=== PATIENT | female | born 1940 | race Caucasian/White ===

== ENCOUNTER 2020-01-07 18:37 | Inpatient (IN) | payer OTHER ==
[~2020-01-07] VITALS: Ht 165.1 cm; Wt 50.3 kg
--- NOTE | ~2020-01-07 | HC ---
[facility] [place] [address] CONSULTATION Name: DOYLEPOOJA ANEL Room #: 464-P ADM IN M.R.#: [id number] Admission: 01/07/20 Attend Phys: Caden Bland Discharge: Date of : 38 Report #: [id number] THIS REPORT FOR: cc: SUZANNE BONDS MD Physician not on staff Carlos Luna MD ~ DATE OF SERVICE: 01/08/2020 HISTORY OF PRESENT ILLNESS: This is an 79-year-old female patient who was evaluated by me for the possibility of seizure. The patient does not provide any reliable history. The provides history. He gives a history that this patient has a diagnosis of Parkinson's disease. Apparently, she had no tremor and it was mostly rigidity and gait abnormality. For last several years, she has followed up with Dr. Lainez at [facility]. They are managing her with the medication and Sinemet does help. She was having some spasms from the last few weeks. It is not clear what the cause of those spasms were. She has used walker for some time now. She had an episode where she became hypervigilant, had some movements, some clenching of teeth was noticed. She was confused. That is difficult to evaluate because this patient has a prior history of hallucination because of the medications. Her memory is not that much affected with Parkinson and she does not appear to have any Parkinson dementia complex. REVIEW OF SYSTEMS: A 14-point review of system was carried out. The patient is pretty drowsy. She has a history of hypertension, hysterectomy and high cholesterol. That is all the relevant 14-point review of system. PAST MEDICAL HISTORY: Positive for Parkinson disease. FAMILY HISTORY: Negative for early age stroke. SOCIAL HISTORY: She lives with her and is the one who provided most of the history. PHYSICAL EXAMINATION: The patient is drowsy. She wakes up some. When she wakes up some time, she will follow commands, most of the time she will not. She is pretty sleepy. Higher function is difficult to tell, but does look like she know what month it is. Speech is pretty soft. Cranial nerve examination is unremarkable. Neuromuscular examination indicates she moves all 4 extremities. She says she can feel on both sides. She does relax for reflexes and plantars. [facility] [address] [place] [address] CONSULTATION Name: DOYLEPOOJA TAM Room #: 464-P [facility] IN M.R.#: [id number] Admission: 01/07/20 Attend Phys: Caden Bland Discharge: Date of : 38 Report #: [id number] There is no meningeal sign. She does not do cerebellar sign. Cardiac examination indicates question of murmur. Respiratory examination indicates no respiratory difficulty. She is moderately built individual. She has no dysmorphic features of eyes, ears and face. Blood pressure is 159/86, respirations 16, pulse is 78 and temperature is 97.7. LABORATORY DATA: Indicate a white count of 8. Glucose is normal. CT is okay. IMPRESSION: This patient has a question of seizure. This is not definite that it was a seizure, but I cannot exclude that either she is having some problem from the last couple of weeks with some nonspecific symptom. She needs further workup before we can decide about the treatment. She also appeared to have a murmur in the heart and we will get an echocardiogram. Further treatment will be decided after her MRI, EEG, echocardiogram and rest of the blood workup is available, which I ordered. Dr. Cardenas will follow up with this patient with you tomorrow and I spent more than 50 minutes of time taking care of this patient and majority was spent counseling and coordinating. By: [id number] Carlos Luna MD /nt
--- NOTE | ~2020-01-07 | EEG ---
[facility] [place] [address] [place] [address] ELECTROENCEPHALOGRAM Name: POOJA KWON Room #: 464-P ADM IN M.R.#: [id number] Admission: 01/07/20 Attend Phys: Caden Lacy Discharge: Date of : 38 Report #: [id number] THIS REPORT FOR: //name// CC: SUZANNE Bland Physician staff DATE OF SERVICE: 01/08/2020 FINDINGS: This patient is being evaluated for the possibility of seizure. EEG was done by placing the electrode by standard 10-20 system of electrode placement. Both referential and sequential montages were used for recording. Background activity in this patient's EEG is about 8 Hz and 15 microvolt. The patient went to sleep that is associated with bilateral slowing and vertex sharp waves. Photic stimulation is unremarkable. Throughout the record, no active epileptiform activity was noticed. IMPRESSION: This patient's EEG is slow voltage and intermixed with theta range slowing on both sides. That is a nonspecific abnormality, which can occur with dementia, encephalopathy, effect of psychotropic medication, etc. Clinical correlation is recommended. Thank you very much for this referral. By: [id number] Carlos Luna MD /nt
[~2020-01-07 18:37] MED LIST: CARBIDOPA-LEVO1 EAC2; HYDROCHLOROTHIA25 M1; PROVENTIL INH; TOPROL XL25 MG; ZOCOR 20 MG TAB20 M1
[2020-01-07 18:38] VITALS: BP 153/91
[2020-01-07 19:47] LABS: ABSOLUTE NEUTROPHILS 7.2 thou/uL (1.4-8.2); BASOPHILS 0.2 % (0.0-2.0); EOSINOPHILS 0.1 % (0.0-3.0); HEMATOCRIT 33.4 % (37.0-47.0); HEMOGLOBIN 11.6 gm/dL (12.0-15.0); LYMPHOCYTES 5.1 % (24.0-44.0); MCH 30.1 pg (26.0-34.0); MCHC 34.7 g/dL (28.0-37.0); MCV 86.7 fL (80.0-100.0); MONOCYTES 4.9 % (1.0-8.0); PLATELET COUNT 339 thou/uL (150-400); POLYS 89.7 % (36.0-66.0); RBC 3.85 mil/uL (4.20-5.00); RDW 14.1 % (10.5-14.5)
[2020-01-07 19:58] LABS: CALCIUM 9.5 mg/dL (8.5-10.1); POTASSIUM 3.8 mmol/L (3.5-5.1)
[2020-01-07 20:04] LABS: ALBUMIN 3.4 g/dL (3.4-5.0); MAGNESIUM 1.7 mg/dL (1.8-2.4); TOTAL BILIRUBIN 0.7 mg/dL (0.2-1.0); TOTAL PROTEIN 6.7 g/dL (6.4-8.2)
[2020-01-07 20:47] VITALS: BP 178/73
[2020-01-07 21:23] VITALS: BP 146/75
[2020-01-07 21:37] LABS: URINE BILIRUBIN NEGATIVE (Negative); URINE BLOOD NEGATIVE (Negative); URINE CLARITY CLEAR; URINE COLOR YELLOW; URINE GLUCOSE-RANDOM* NEGATIVE (Negative); URINE KETONES TRACE (Negative); URINE LEUKOCYTES-REFLEX NEGATIVE (Negative); URINE NITRITE-REFLEX NEGATIVE (Negative); URINE PROTEIN (DIPSTICK) 1+ (Negative); URINE SPECIFIC GRAVITY >= 1.030 (1.005-1.035)
[2020-01-07 21:42] LABS: HDL CHOLESTEROL 71 mg/dL (>40); TRIGLYCERIDE 79 mg/dL (<150); VLDL 16 mg/dL (<40)
[2020-01-07 21:47] LABS: CHOLESTEROL 223 mg/dL (<200); LDL CHOLESTEROL 137 mg/dL (<100); SERUM ASSESSMENT Clear; TC:HDL 3.1 Ratio (Not establshd)
[2020-01-07 21:50] LABS: SQUAMOUS 0-3 Few /LPF (0-3); TRANSITIONAL EPITHEL CELL 0-3 Few /LPF (None Seen)
[2020-01-07 21:51] LABS: BACTERIA-REFLEX 1-9 Few /HPF (None Seen); CASTS None Seen /LPF (None Seen); CRYSTALS None Seen /LPF (None Seen); URINE RBC None Seen /HPF (0-2); URINE WBC-REFLEX None Seen /HPF (0-5)
[2020-01-07 22:09] VITALS: BP 147/82
[2020-01-07] MEDS ORDERED: RYTARY ER 61.21 EACH PO (23:53)
--- NOTE | 2020-01-08 00:37 | NUR ---
ASSUMED CARE OF PT FROM ER AT 2140HRS. PT AOX1 AND NEEDS MAY NEED TO BE ANTICIPATED. FALL PRECAUTION IN PLACE. SEIZURE PRECAUTION IN PLACE. NO WOUNDS NOTED. SCD IN PLACE. PT DENIES PAIN, NAUSEA OR SOA. PT WAS UNABLE TO SIGN CONSENTS OR ANSWER ALL ADMISSION RELATED QUESTIONS. PT IS INCT. INFOMATION FROM PT IS UNRELIABLE. ORDERS RECEIVED AND STARTED. PT WAS ABLE TO GET COMFORTABLE AND SLEEP. WILL CONTINUE TO MONITOR.
[2020-01-08 02:33] VITALS: BP 150/80
[2020-01-08 06:11] LABS: CALCIUM 9.2 mg/dL (8.5-10.1); CREATININE 0.8 mg/dL (0.6-1.0); POTASSIUM 4.1 mmol/L (3.5-5.1)
[2020-01-08 06:37] VITALS: BP 170/80
--- NOTE | 2020-01-08 07:07 | EKG ---
[facility] [place] [address] ELECTROCARDIOGRAM REPORT Name: DOYLEPOOJA ANEL Room #: 464-P ADM IN M.R.#: [id number] Admission: 01/07/20 Attend Phys: Caden Bland Discharge: Date of : 38 Report #: [id number] THIS REPORT FOR: cc: SUZANNE BONDS MD Physician not on staff Aj Gautam MD [facility] THIS REPORT FOR: //name// [facility] ED Test Date: 2020-01-07 Test Time: 18:48:18 Pat Name: POOJA KWON Department: Room: 464 Gender: F Rehabilitation Specialist: GEREMIAS : 1940 Requested By: Cal Estrella Order Number: [id number] MD: Aj Gautam Measurements Intervals [place] Rate: 63 P: 65 VT: 181 QRS: -31 QRSD: 149 T: 120 QT: 456 QTc: 467 Interpretive Statements Sinus rhythm Probable left atrial enlargement Left bundle branch block Compared to ECG 07/11/2010 16:22:53 Left-axis deviation no longer present Electronically Signed On 01-08-2020 7:06:57 [employer]CH[employer] by Aj Gautam [email or web address] <ELECTRONICALLY SIGNED> By: Aj Gautam MD, FAC 01/08/20 0706 [id number] Aj Gautam MD, [facility] /EPI
[2020-01-08 07:59] VITALS: BP 159/86
[2020-01-08] MEDS ORDERED: CARBIDOPA-LEVO1 EAC9 PO (11:01)
--- NOTE | 2020-01-08 14:23 | 2DMMODE ---
[facility] [place] [address] 2 D/M-MODE ECHOCARDIOGRAM Name: POOJA KWON Room #: 464-P ADM IN M.R.#: [id number] Admission: 01/07/20 Attend Phys: Caden Bland Discharge: Date of : 38 Report #: [id number] THIS REPORT FOR: cc: SUZANNE BONDS MD Physician not on staff Abraham Caceres MD ~ APPROVED REPORT Study performed: 01/08/2020 13:35:28 EXAM: Comprehensive 2D, Doppler, and color-flow Echocardiogram Patient Location: Bedside Room #: 464 Status: routine BSA: 1.59 HR: 67 bpm BP: 159/86 mmHg Rhythm: LBBB Indications Syncope Hx: HTN, HLP. 2D Dimensions RVDd: 28.08 mm IVSd: 12.28 (7-11mm) LVOT Diam: 19.88 (18-24mm) LVDd: 38.41 mm PWd: 11.00 (7-11mm) Ascending Ao: 36.03 (22-36mm) LVDs: 29.35 (25-40mm) Aortic Root: 35.61 mm Volumes Left Atrial Volume (Systole) Single Plane 4CH: 29.23 mL Single Plane 2CH: 36.08 mL LA ESV Index: 22.00 mL/m2 Aortic Valve AoV Peak Zack.: 1.32 m/s AO Peak Gr.: 6.94 mmHg LVOT Max P.52 mmHg LVOT Max V: 0.94 m/s NEDA Vmax: 2.21 cm2 Mitral Valve E/A Ratio: 0.6 [facility] [address] [place] [address] 2 D/M-MODE ECHOCARDIOGRAM Name: POOJA KWON Room #: 464-P [facility] IN .R.#: [id number] Admission: 01/07/20 Attend Phys: Caden Frey Discharge: Date of : 38 Report #: [id number] MV Decel. Time: 326.47 ms MV E Max Zack.: 0.50 m/s MV A Zack.: 0.82 m/s MV PHT: 94.68 ms IVRT: 176.47 ms Pulmonary Valve PV Peak Zack.: 1.30 m/s PV Peak Gr.: 6.74 mmHg Pulmonary Vein P Vein S: 0.61 m/s P Vein A: 0.28 m/s P Vein D: 0.41 m/s P Vein A Dur.: 107.3 msec P Vein S/D Ratio: 1.49 Tricuspid Valve TR Peak Zack.: 2.62 m/s RAP Estimate: 5.00 mmHg TR Peak Gr.: 28.00 mmHg PA Pressure: 33.00 mmHg Left Ventricle The left ventricle is normal size. There is normal LV segmental wall motion. Paradoxical septal motion. Mild concentric left ventricular hypertrophy. Left ventricular systolic function is normal. LVEF is 55-60%. Mild diastolic dysfunction is present (impaired relaxation pattern). Right Ventricle The right ventricle is normal size. The right ventricular systolic function is normal. Atria The left atrium size is normal. The right atrium size is normal. Aortic Valve The aortic valve is normal in structure. Leaflets are mildly thickened and calcified. Trace aortic regurgitation. There is no aortic valvular stenosis. Mitral Valve The mitral valve is normal in structure. Mild mitral annular calcification. Trace mitral regurgitation. No evidence of mitral valve stenosis. Tricuspid Valve The tricuspid valve is normal in structure. Trace tricuspid [facility] [address] [place] [address] 2 D/M-MODE ECHOCARDIOGRAM Name: DOYLEPOOJA Room #: 464-P ADM IN M.R.#: [id number] Admission: 01/07/20 Attend Phys: Caden Frey Discharge: Date of : 38 Report #: [id number] regurgitation. Estimated PAP 33mmHg. Pulmonic Valve The pulmonary valve is normal in structure. Mild to moderate pulmonic regurgitation. Great Vessels The aortic root is normal in size. The ascending aorta is normal in size. IVC is normal in size and collapses >50% with inspiration. Pericardium There is no pericardial effusion. <Conclusion> The left ventricle is normal size. Mild concentric left ventricular hypertrophy. Left ventricular systolic function is normal. Mild diastolic dysfunction is present (impaired relaxation pattern). The right ventricle is normal size. The left atrium size is normal. The aortic valve is normal in structure. Leaflets are mildly thickened and calcified. Trace mitral regurgitation. Trace tricuspid regurgitation. Estimated PAP 33mmHg. <ELECTRONICALLY SIGNED> By: Abraham Caceres MD 01/08/20 1423 1423 1423 Abraham Caceres MD /INF
--- NOTE | 2020-01-08 14:55 | NUR ---
PT ADMITTED RELATED TO NEW ONSET SEIZURE. CM REVIEWED CHART AND SPOKE WITH CARE TEAM. CM CALLED AND SPOKE WITH PT'S SPOUSE AT BEDSIDE THIS DAY. HE INDICATED THAT THEY RESIDE IN ME AT [facility]. HE INDICATED THAT PT HAD USED A [employer] AND A WC. PCP IS DR. SUZANNE BONDS. SPOUSE INDICATED THAT PT WAS SUPPOSED TO START HOME HEALTH THEAPIES TODAY THROUGH [facility]. HE INDICATED THAT THEY HOPE THAT PT WILL BE ABLE TO RETURN HOME WITH SERVICES ONCE MEDICALLY STABLE BUT THAT PT HAD BEEN TO [facility] ON [facility] JANUARY OR FEBRUARY LAST YEAR FOR SHORT TERM SKILLED REHAB STAY SO THEY ARE RECEPTIVE TO SNF IS NEEDED ALSO. PT TO HAVE MRI/EEG AND NEUOR CONSULT. CM FOLLOWING REGARDING DC PLANNING.
[2020-01-08] MEDS ORDERED: RYTARY ER 61.21 EACH PO (14:58)
[2020-01-08 20:15] VITALS: BP 152/68
--- NOTE | 2020-01-08 20:29 | NUR ---
PT A*O SELF, VSS, NO APPARENT PAIN. PATIENT SLEPT MOST OF DAY. PATIENT ABLE TO FOLLOW COMMANDS AND SPOKE MORE TOWARDS END OF SHIFT. PATIENT POOR APPETITE, MEDS GIVEN WITH APPLESAUCE. AT BEDSIDE. MRI COMPLETED. NO SIGNS OF DISTRESS. WILL CONTINUE TO MONITOR.
[2020-01-09 06:07] LABS: HEMATOCRIT 33.1 % (37.0-47.0); HEMOGLOBIN 10.9 gm/dL (12.0-15.0); MCH 28.8 pg (26.0-34.0); MCV 87.4 fL (80.0-100.0); RBC 3.79 mil/uL (4.20-5.00); RDW 14.2 % (10.5-14.5); WBC 4.4 thou/uL (4.0-11.0)
[2020-01-09 06:24] LABS: CALCIUM 8.8 mg/dL (8.5-10.1); CREATININE 0.7 mg/dL (0.6-1.0); POTASSIUM 3.7 mmol/L (3.5-5.1)
[2020-01-09 07:32] VITALS: BP 166/83
--- NOTE | 2020-01-09 07:38 | NUR ---
VSS-AFEBRILE. NO SEIZURE ACTIVITY OVERNIGHT. TURNED AND OFFERED ORAL HYDRATION EVERY TWO HOURS. NO C/O PAIN. FALL PRECAUTIONS IN PLACE.
--- NOTE | 2020-01-09 10:08 | NUR ---
new orders pt and ot to eval and tx for dcp.
--- NOTE | 2020-01-09 20:44 | NUR ---
PT A&OX2, VSS, NO APPARENT PAIN. PATIENT AT BEDSIDE. PATIENT TOLERATING DIET. PATIENT UP TO RECLINER. PATIENT NEEDS TIME TO MOVE, SLOW WITH WALKER, SLIGHTLY STEADY. ROOM AIR. IV PATENT. PATIENT MORE TALKATIVE, FOLLOWS INSTRUCTIONS BETTER, FORGETFUL. NO SIGNS OF DISTRESS. WILL CONTINUE TO MONITOR.
--- NOTE | 2020-01-10 05:18 | NUR ---
Pt. rested quietly during the night when checked on during frequent rounds. She is oriented to self. Pt. offers no c/o pain or discomfort. Bed alarm is on.
[2020-01-10 07:51] VITALS: BP 117/72
[2020-01-10 11:07] VITALS: BP 117/72
--- NOTE | 2020-01-10 11:51 | NUR ---
Assumed pt care at 7am.Assessment completed.vss.am med given with breakfast and well tolerated.Complete bath given by deaf teacher.Dr Bruno here,dc order noted. Dc summary compile and reviewed with family.Saline lock dc'd.Pt will dc per wc with family at 1151 in stable condition to assisted living.
== END 2020-01-10 11:52 | DRG 100 ==
LOC: ER 18:37 → 4W 20:42 → EROBS 20:42 → 4W 21:34
PROVIDERS: Emergency Medicine; Hospitalist; Nurse Practitioner Family; ADMIT Hospitalist; ATTEND Hospitalist
DX: R56.9 Unspecified convulsions (principal); G93.41 Metabolic encephalopathy; G20 Parkinson's disease; I10 Essential (primary) hypertension; E78.00 Pure hypercholesterolemia, unspecified; E83.42 Hypomagnesemia; K59.00 Constipation, unspecified; Z90.710 Acquired absence of both cervix and uterus; Z79.899 Other long term (current) drug therapy
CPT/HCPCS: 10045